=== PATIENT | female | born 1965 | race Caucasian/White ===

== ENCOUNTER 2018-08-22 11:58 | Day surgery (SDC) | payer OTHER ==
[~2018-08-22 11:58] MED LIST: LIDOCAINE 2% (SDV) 5 ML INJ
[2018-08-22] MEDS ORDERED: PROPOFOL 40 ML (13:51)
== END 2018-08-22 14:39 | disposition home or self-care (01) ==
LOC: GIL 11:58
DX: Z12.11 Encounter for screening for malignant neoplasm of colon (principal); K64.8 Other hemorrhoids; K57.30 Diverticulosis of large intestine without perforation or abscess without bleeding; E03.9 Hypothyroidism, unspecified
CPT/HCPCS: 45378